=== PATIENT | female | born 1990 | race Caucasian/White ===

== ENCOUNTER 2023-10-12 10:28 | Emergency (ER) | payer BC, OTHER ==
[~2023-10-12] VITALS: Ht 167.6 cm; Wt 61.9 kg
[2023-10-12] MEDS ORDERED: methylPREDNISolone SOD SUCC 125 MG/2 ML VL IV ONE (10:45)
[2023-10-12] MEDS ORDERED: diphenhdrAMINE HCL 25 MG CAP PO ONE (10:45)
[2023-10-12] MEDS ORDERED: FAMOTIDINE 20 MG TAB PO ONE (10:45)
[2023-10-12] MEDS ORDERED: methylPREDNISolone SOD SUCC 125 MG/2 ML VL IM ONE (11:15)
[2023-10-12 13:00] VITALS: PULSE 98; RESP 18; O2SAT 99
[2023-10-12 14:16] VITALS: BP 132/84; PULSE 84; RESP 16; TEMP 98.2; O2SAT 97
[2023-10-12 15:04] LABS: Basophils # (auto) 0 10 ^3/uL (0-0.2); Basophils % (auto) 0.3 % (0.0-2.0); Eosinophils # (auto) 0 10 ^3/uL (0-0.8); Eosinophils % (auto) 0.4 % (0.0-7.0); Hematocrit 41.5 % (36.0-46.0); Hemoglobin 14.3 g/dL (12.2-16.2); Lymphocytes # (auto) 0.6 10 ^3/uL (0.4-5.4); Lymphocytes % (auto) 10.1 % (10.0-50.0); Mean Corpuscular Hemoglobin 32.4 pg (28.0-32.0); Mean Corpuscular Hgb Conc. 34.4 g/dL (32.0-36.0); Mean Corpuscular Volume 94.2 fL (80.0-100.0); Monocytes # (auto) 0.1 10 ^3/uL (0-1.3); Monocytes % (auto) 1.6 % (0.0-12.0); Neutrophils # (auto) 4.9 10 ^3/uL (1.6-8.6); Neutrophils % (auto) 87.6 % (37.0-80.0); Red Blood Cells 4.41 10^6/uL (4.0-5.20); Red Cell Distribution Width 12.2 % (11.8-14.3); White Blood Cell 5.6 10^3/uL (4.4-10.8)
[2023-10-12 15:09] LABS: Urine Bacteria FEW /hpf (None Seen); Urine Blood Negative /uL (Negative); Urine Clarity Clear (Clear); Urine Color Colorless (Yellow); Urine Protein, UAD Negative (Negative); Urine Specific Gravity 1.003 (1.001-1.035); Urine Urobilinogen Normal (Negative); Urine WBC <1 /hpf (0 - 5)
[2023-10-12 15:41] LABS: Alanine Aminotransferase 35 U/L (7-40); Albumin 4.6 g/dL (3.2-4.8); Alkaline Phosphatase 55 U/L (46-116); Anion Gap 9 (5-15); Aspartate Aminotransferase 24 U/L (13-40); BUN/Creatinine Ratio 8.2 (10.0-20.0); Bilirubin, Total 0.7 mg/dL (0.2-1.0); Blood Urea Nitrogen 5 mg/dL (9-23); CRP High Sensitivity 0.16 mg/dL (<1.0); Calcium 9.4 mg/dL (8.5-10.1); Carbon Dioxide 24 mmol/L (20-30); Chloride 106 mmol/L (98-107); Glucose 105 mg/dL (74-106); Potassium 3.5 mmol/L (3.5-5.1); Sodium 139 mmol/L (136-145)
[2023-10-12 15:42] LABS: Total Protein 6.9 g/dL (5.7-8.2)
== END 2023-10-12 16:33 | disposition home or self-care (01) ==
LOC: ER 10:28
DX: R21 Rash and other nonspecific skin eruption (principal); Z88.1 Allergy status to other antibiotic agents; Z88.0 Allergy status to penicillin
CPT/HCPCS: 36415; 71046; 80053; 81001; 85025; 86141; 96372; 99284; J2930

== ENCOUNTER 2025-01-23 14:59 | Emergency (ER) | payer BC ==
[~2025-01-23] VITALS: Ht 172.7 cm; Wt 59.0 kg
--- NOTE | 2025-01-23 15:09 | ED.PDOC ---
History of Present Illness HPI Comments 34-year-old female came to the ER stating that she has been having chest pain for a week. Chest pain in the left side no radiation of the pain. Unable to take deep breaths without having pain. She was seen in urgent care two days ago. EKG was normal at that time. She continues to have chest pain. Denies any history of hypertension diabetes. She does smoke cigarettes. Denies any other symptoms. Time Seen by MD: 15:02 Primary Care Provider: NONE Reviewed Notes: Nurses Notes, Medications, Allergies Allergies: Coded Allergies: Amoxicillin (Verified Allergy, Unknown, 10/12/23) Erythromycin (Verified Allergy, Unknown, 01/23/25) Penicillins (Verified Allergy, Unknown, 10/12/23) Home Meds No Active Prescriptions or Reported Meds Information Source: Patient Mode of Arrival: Ambulatory Severity: Moderate Timing: Days Duration: Since onset Past Medical History PAST MEDICAL HISTORY: Denies Surgical History: Denies all surgeries [employer] AND REPAIRER History: No Pertinent [employer] REPA[employer]ER History Family History Family History: Reviewed,noncontributory to illness, Unknown Social History Smoker: Cigarettes Alcohol: Sober Drugs: Denies Drug Use Lives In: Home Constitutional: denies: chills, diaphoresis, fatigue, fever, malaise, sweats, weakness, others EENTM: denies: blurred vision, double vision, ear bleeding, ear discharge, ear drainage, ear pain, ear ringing, eye pain, eye redness, hearing loss, mouth pain, mouth swelling, nasal discharge, nose bleeding, nose congestion, nose charity n, photophobia, tearing, throat pain, throat swelling, voice changes, others Respiratory: denies: cough, hemoptysis, orthopnea, SOB at rest, shortness of breath, SOB with excertion, stridor, wheezing, others Cardiovascular: reports: chest pain; denies: dizzy spells, diaphoresis, Dyspnea on exertion, edema, irregular heart beat, left arm pain, lightheadedness, palpitations, PND, syncope, others Gastrointestinal: denies: abdomen distended, abdominal pain, blood streaked bowels, constipated, diarrhea, dysphagia, difficulty swallowing, hematemesis, me carmen, nausea, poor appetite, poor fluid intake, rectal bleeding, rectal pain, vomiting, others Genitourinary: denies: abnormal vagina bleeding, burning, dyspareunia, dysuria, flank pain, frequency, hematuria, incontinence, pain, , vagina discharge, urgency, others Neurological: denies: dizziness, fainting, headache, left sided numbness, left sided weakness, numbness, paresthesia, pre-existing deficit, right sided numbness, right sided weakness, seizure, speech problems, tingling, tremors, weakness, others Musculoskeletal: denies: back pain, gout, joint pain, joint swelling, muscle pain, muscle stiffness, neck pain, others Integumetry: denies: bruises, change in color, change in hair/nails, dryness, laceration, lesions, lumps, rash, wounds, others Allergic/Immunocompromised: denies: Difficulty Healing, Frequent Infections, Hives, Itching, others Hematologic/Lymphatic: denies: anemia, blood clots, easy bleeding, easy bruising, swollen glands, others Endocrine: denies: excessive hunger, excessive sweating, excessive thirst, excessive urination, flushing, intolerance to cold, intolerance to heat, unexplained weight gain, unexplained weight loss, others Psychiatric: denies: anxiety, bipolar disorder, depression, hopeless, panic disorder, schizophrenia, sleepless, suicidal, others Physical Exam General Appearance: Moderate Distress HEENT: Normal ENT Inspection, Pharynx Normal, TMs Normal Neck: Full Range of Motion, Non-Tender, Normal, Normal Inspection Respiratory: Chest Non-Tender, Lungs Clear, No Accessory Muscle Use, No Respiratory Distress, Normal Breath Sounds Cardiovascular: No Edema, No JVD, No Murmur, No Gallop, Normal Peripheral Pulses, Regular Rate/Rhythm Breast Exam: Deferred Gastrointestinal: No Organomegaly, Non Tender, No Pulsatile Mass, Normal Bowel Sounds, Soft Genitalia: Deferred Pelvic: Deferred Rectal: Deferred Extremities: No calf tenderness, Normal capillary refill, Normal inspection, Normal range of motion, Non-tender, No pedal edema Musculoskeletal : Apperance: Normal Neurologic: Alert, veneer gluer II-XII nml as Tested, No Motor Deficits, Normal Affect, Normal Mood, No Sensory Deficits Cerebellar Function: Normal Reflexes: Normal Skin: Dry, Normal Color, Warm Peripheral Pulses: 3+ Radial (R), 3+ Radial (L) Lymphatic: No Adenopathy Was a procedure done? Was a procedure done?: No EKG EKG : [place]: Normal Cardiac Rhythm: NSR Differential Dx Considerations may include: Pleurisy Electrolyte imbalance X-Ray, Labs, Meds, VS Vital Signs Date Time Temp Pulse Resp B/P (MAP) Pulse Ox O2 Delivery O2 Flow Rate FiO2 01/23/25 15:59 74 01/23/25 15:08 77 01/23/25 15:07 99.5 88 18 150/92 (111) 98 99.5 Lab Test 01/23/25 15:16 Range/Units White Blood Count Pending Red Blood Count Pending Hemoglobin Pending Hematocrit Pending Mean Corpuscular Volume Pending Mean Corpuscular Hemoglobin Pending Mean Corpuscular Hemoglobin Concent Pending Red Cell Distribution Width Pending Platelet Count Pending Mean Platelet Volume Pending Neutrophils (%) (Auto) Pending Lymphocytes (%) (Auto) Pending Monocytes (%) (Auto) Pending Basophils (%) (Auto) Pending Neutrophils # (Auto) Pending Lymphocytes # (Auto) Pending Monocytes # (Auto) Pending D-Dimer, Quantitative Pending Sodium Level Pending Potassium Level Pending Chloride Level Pending Carbon Dioxide Level Pending Anion Gap Pending Blood Urea Nitrogen Pending Creatinine Pending Glomerular Filtration Rate Calc Pending BUN/Creatinine Ratio Pending Serum Glucose Pending Calcium Level Pending Troponin I High Sensitivity Pending Patient alert. Complaining of chest pain. Mild fever. Blood pressure elevated. Heart rate within normal limits. Saturation pristine on room air. Continues to have chest pain. Chest x-ray reviewed does not show any acute changes. Possible pleurisy. Echocardiogram. She has been having this pain on and off for more than a week. She did get an EKG done few days ago at an outside clinic for which it was normal. For better patient care patient we will be admitted for further cardiology workup. Explained to the patient. Time of 1ST Reevaluation: 15:08 Reevaluation 1ST: Unchanged Patient Education/Counseling: Diagnosis, Treatment, Prognosis, Need For Follow Up Family Education/Counseling: No Family Present Departure 1 Departure Time of Disposition: 15:09 Impression: Primary Impression: Chest pain of unknown etiology Additional Impression: Pleurisy Disposition: ADMITTED INPATIENT Admit to: Med Surg Condition: Guarded e-Prescriptions No Active Prescriptions or Reported Meds Critical Care Note Critical Care Time?: No Stability Stability form required: No Heart Score Heart Score: Heart Score Response (Comments) Value History Slightly Suspicious 0 EKG Normal 0 Age <45 0 Risk Factors No known risk factors 0 Troponin Normal limit 0 Total 0 CLARA VAUGHAN MD Jan 23, 2025 15:09
--- NOTE | 2025-01-23 15:50 | DVH ---
XY CHEST PORTABLE, HISTORY: sob COMPARISON: None None TECHNICAL DATA: 1 view of the chest was obtained. FINDINGS: Lines and tubes: None Cardiomediastinal silhouette: normal Pulmonary vasculature: normal Lung expansion: normal Lung airspace: normal Lung interstitium: normal Pleura: normal Pneumothorax: no Bones: Unremarkable Other: no IMPRESSION: No acute intrathoracic abnormality.
[2025-01-23 17:11] LABS: Chloride 104 mmol/L (98-107); Potassium 3.8 mmol/L (3.5-5.1); Sodium 137 mmol/L (136-145)
[2025-01-23 17:12] LABS: Anion Gap 6 (5-15); Basophils # (auto) 0 10 ^3/uL (0-0.2); Basophils % (auto) 0.5 % (0.0-2.0); Calcium 9.9 mg/dL (8.7-10.4); Carbon Dioxide 27 mmol/L (20-31); Eosinophils # (auto) 0.3 10 ^3/uL (0-0.8); Eosinophils % (auto) 5.9 % (0.0-7.0); Hematocrit 42.1 % (36.0-46.0); Hemoglobin 14.3 g/dL (12.2-16.2); Lymphocytes % (auto) 35.2 % (10.0-50.0); Mean Corpuscular Hemoglobin 32.2 pg (28.0-32.0); Mean Corpuscular Hgb Conc. 33.9 g/dL (32.0-36.0); Mean Corpuscular Volume 94.9 fL (80.0-100.0); Monocytes # (auto) 0.3 10 ^3/uL (0-1.3); Monocytes % (auto) 4.9 % (0.0-12.0); Neutrophils # (auto) 3.1 10 ^3/uL (1.6-8.6); Neutrophils % (auto) 53.5 % (37.0-80.0); Nucleated Red Blood Cells % 0.2 %; Platelet Count (auto) 235 10^3/uL (140-450); Red Blood Cells 4.44 10^6/uL (4.0-5.20); White Blood Cell 5.8 10^3/uL (4.4-10.8)
[2025-01-23 17:13] VITALS: BP 140/83; PULSE 74; RESP 15; TEMP 97.8; O2SAT 99
[2025-01-23 17:17] LABS: BUN/Creatinine Ratio 17.1 (10.0-20.0); Blood Urea Nitrogen 13 mg/dL (9-23); Glucose 104 mg/dL (74-106)
[2025-01-23] MEDS ORDERED: IBU600T PO (17:45)
[2025-01-23 19:13] LABS: Urine Bacteria FEW /hpf (None Seen); Urine Blood Negative /uL (Negative); Urine Clarity Clear (Clear); Urine Color Light-Yellow (Yellow); Urine Protein, UAD Negative (Negative); Urine Specific Gravity 1.013 (1.001-1.035); Urine Squamous Epithelial Cell None Seen /hpf (<5); Urine Urobilinogen Normal (Negative); Urine WBC 1 /HPF (0-5)
--- NOTE | 2025-01-24 11:59 | ECG ---
[facility] Test Date: 2025-01-23 Test Time: 15:08:15 Pat Name: DIOMEDES ARNOLD Department: ED Room: Gender: F Certified Athletic Trainer: GP : 1990 Requested By: CLARA VAUGHAN Order Number: [id number] Reading MD: Earle Chirinos Measurements Intervals Marty Rate: 77 P: 71 SC: 149 QRS: 74 QRSD: 89 T: 47 QT: 374 QTc: 424 Interpretive Statements Sinus rhythm LAE, consider biatrial enlargement Electronically Signed On 01-24-2025 20:55:43 PDT by Earle Chirinos Please click the below link to view image of tracing.
--- NOTE | 2025-01-24 11:59 | ECG ---
[facility] Test Date: 2025-01-23 Test Time: 15:59:40 Pat Name: DIOMEDES ARNOLD Department: ED Room: Gender: F Public Health Service Officer: NILDA : 1990 Requested By: CLARA VAUGHAN Order Number: [id number] Reading MD: Earle Chirinos Measurements Intervals [place] Rate: 74 P: 71 NC: 152 QRS: 76 QRSD: 87 T: 45 QT: 384 QTc: 426 Interpretive Statements Sinus rhythm Right atrial enlargement Electronically Signed On 01-24-2025 20:55:53 PDT by Earle Chirinos Please click the below link to view image of tracing.
== END 2025-01-23 17:51 | disposition left against medical advice (07) ==
LOC: ER 14:59
DX: R07.89 Other chest pain (principal); R09.1 Pleurisy; F17.210 Nicotine dependence, cigarettes, uncomplicated; Z88.0 Allergy status to penicillin; Z88.1 Allergy status to other antibiotic agents
CPT/HCPCS: 36415; 71045; 80048; 81001; 84484; 85025; 85379; 93005